=== PATIENT | female | born 1990 | race Caucasian/White ===

== ENCOUNTER 2019-04-04 10:10 | Emergency (ER) | payer OTHER ==
[~2019-04-04] VITALS: Ht 165.1 cm; Wt 60.0 kg
[2019-04-04 10:16] VITALS: BP 127/70; Ht 165.1 cm; Wt 60.0 kg
== END 2019-04-04 11:30 | disposition home or self-care (01) ==
LOC: ED 10:10
DX: S63.601A Unspecified sprain of right thumb, initial encounter (principal); Z88.5 Allergy status to narcotic agent; Z90.89 Acquired absence of other organs; W50.0XXA Accidental hit or strike by another person, initial encounter; Y93.89 Activity, other specified; Y92.89 Other specified places as the place of occurrence of the external cause; Y99.8 Other external cause status

== ENCOUNTER 2019-05-12 12:56 | Emergency (ER) | payer OTHER ==
[~2019-05-12] VITALS: Ht 165.1 cm; Wt 59.9 kg
[2019-05-12 13:04] VITALS: BP 115/70; Ht 165.1 cm; Wt 59.9 kg
== END 2019-05-12 14:47 | disposition home or self-care (01) ==
LOC: ED 12:56
DX: Z11.3 Encounter for screening for infections with a predominantly sexual mode of transmission (principal)
CPT/HCPCS: 87491; 87591

== ENCOUNTER 2019-10-20 11:04 | Emergency (ER) | payer OTHER ==
[~2019-10-20] VITALS: Ht 165.1 cm; Wt 501.7 kg
[2019-10-20 11:06] VITALS: BP 133/79; Ht 165.1 cm; Wt 501.7 kg
== END 2019-10-20 12:22 | disposition home or self-care (01) ==
LOC: ED 11:04
DX: S51.831A Puncture wound without foreign body of right forearm, initial encounter (principal); S71.131A Puncture wound without foreign body, right thigh, initial encounter; F31.9 Bipolar disorder, unspecified; W54.0XXA Bitten by dog, initial encounter; Y93.89 Activity, other specified; Y99.8 Other external cause status; Y92.89 Other specified places as the place of occurrence of the external cause
CPT/HCPCS: 90715; Q0092

== ENCOUNTER 2020-09-19 12:44 | Emergency (ER) | payer OTHER ==
[~2020-09-19] VITALS: Ht 162.6 cm; Wt 64.0 kg
[2020-09-19 12:57] VITALS: BP 114/74; Ht 162.6 cm; Wt 64.0 kg
== END 2020-09-19 14:20 | disposition home or self-care (01) ==
LOC: ED 12:44
DX: K62.5 Hemorrhage of anus and rectum (principal); Z90.89 Acquired absence of other organs; Z88.5 Allergy status to narcotic agent